=== PATIENT | male | born 1980 | race American Indian/Alaskan Native ===

== ENCOUNTER 2023-05-24 09:06 | Day surgery (SDC) | payer OTHER ==
[~2023-05-24] VITALS: Ht 188 cm; Wt 99.0 kg
[~2023-05-24 09:06] MED LIST: CRUTCH3 USE; ESOM20; IBUP200 PO; OXYACE5T PO; PROACE100 PO; RXOXYACE PO; RXPROACE PO
[2023-05-24] MEDS ORDERED: PANT40 (09:21)
[2023-05-24 11:04] VITALS: BP 93/67
== END 2023-05-24 11:01 | disposition home or self-care (01) ==
LOC: ORSCSDS 09:06
PROVIDERS: Internal Medicine Gastroenterology
PROC: 0DB58ZX Excision of Esophagus, Via Natural or Artificial Opening Endoscopic, Diagnostic (ICD-10-PCS; principal; 2023-05-24 10:30)
PROC: 0DB68ZX Excision of Stomach, Via Natural or Artificial Opening Endoscopic, Diagnostic (ICD-10-PCS; principal; 2023-05-24 10:30)
DX: K22.70 Barrett's esophagus without dysplasia (principal); K21.9 Gastro-esophageal reflux disease without esophagitis; K44.9 Diaphragmatic hernia without obstruction or gangrene; Z79.899 Other long term (current) drug therapy
CPT/HCPCS: J2250; J2704; J7120

== ENCOUNTER → 2023-06-15 | Outpatient (CLI) | payer SELFPAY ==
[~2023-06-15] MED LIST changes: +PANT40
== END ==
LOC: LAB 14:32 → LAB SHORT 14:32
DX: D23.61 Other benign neoplasm of skin of right upper limb, including shoulder (principal)
CPT/HCPCS: 88305

== ENCOUNTER → 2023-12-06 | Outpatient (CLI) | payer OTHER ==
[2023-12-06 18:59] LABS: BASOPHILS ABSOLUTE AUTO 0.02 K/mm3 (0.00-0.23); BASOPHILS PERCENT AUTO 0 % (0-2); EOSINOPHILS ABSOLUTE AUTO 0.05 K/mm3 (0.00-0.68); EOSINOPHILS PERCENT AUTO 1 % (0-6); Hematocrit 46.7 % (37.0-53.0); Hemoglobin 15.6 g/dL (13.5-17.5); IMMATURE GRAN ABSOLUTE AUTO 0.01 K/mm3 (0.00-0.10); IMMATURE GRAN PERCENT AUTO 0 % (0-1); LYMPHOCYTES ABSOLUTE AUTO 2.13 K/mm3 (0.84-5.20); LYMPHOCYTES PERCENT AUTO 35 % (21-46); MONOCYTES ABSOLUTE AUTO 0.67 K/mm3 (0.16-1.47); MONOCYTES PERCENT AUTO 11 % (4-13); Mean Corpuscular HGB 32.4 pg (26.0-34.0); Mean Corpuscular HGB Conc 33.4 g/dL (31.5-36.5); Mean Corpuscular Volume 97 fL (80-100); Mean Platelet Volume 10.6 fL (9.1-12.4); NEUTROPHILS ABSOLUTE AUTO 3.27 K/mm3 (1.96-9.15); NEUTROPHILS PERCENT AUTO 53 % (41-73); Platelet Count 270 K/mm3 (150-400); RDW Coefficient Variation 11.9 % (11.7-14.2); RDW Standard Deviation 42.7 fL (35.1-46.3); Red Blood Cell Count 4.81 M/mm3 (4.30-5.90); White Blood Cell Count 6.15 K/mm3 (4.00-11.30)
[2023-12-06 19:16] LABS: C-REACTIVE PROTEIN, EXT RANGE 0.532 mg/dL (0.000-0.300)
[2023-12-06 19:26] LABS: Albumin, Blood 4.2 g/dL (3.4-5.0); Albumin/Globulin Ratio 1.2 (0.8-1.8); Bilirubin, Total 0.4 mg/dL (0.1-1.0); Bun/Creatinine Ratio 13.7 (12.0-20.0); Creatinine, Blood 1.17 mg/dL (0.60-1.20); Globulin, Blood 3.6 g/dL (2.2-4.0); Potassium, Blood 3.6 mmol/L (3.5-5.5); Thyroid Stimulating Hormone 2.95 uIU/mL (0.360-4.800); Total Protein, Blood 7.8 g/dL (6.4-8.2)
== END | disposition home or self-care (01) ==
LOC: LAB 17:27 → LAB SHORT 17:27
PROVIDERS: Student in an Organized Health Care Education/Training Program
DX: K92.1 Melena (principal); R19.5 Other fecal abnormalities; R10.9 Unspecified abdominal pain; R11.0 Nausea; R63.4 Abnormal weight loss
CPT/HCPCS: 80053; 84443; 85025; 86140

== ENCOUNTER → 2024-01-03 | Outpatient (CLI) | payer OTHER ==
[2024-01-03 12:16] LABS: Stool Occult Bld Immuno 1 Negative (NEGATIVE)
[2024-01-07 03:21] LABS: CALPROTECTIN,FECAL 28 ug/g (<=49)
== END | disposition home or self-care (01) ==
LOC: LAB 05:30 → LAB SHORT 05:30
PROVIDERS: Student in an Organized Health Care Education/Training Program
DX: K92.1 Melena (principal); R10.9 Unspecified abdominal pain; R11.0 Nausea; R63.4 Abnormal weight loss
CPT/HCPCS: 82274; 83993